=== PATIENT | male | born 1960 | race Caucasian/White ===

== ENCOUNTER 2017-12-19 14:46 | Emergency (ER) | payer MEDICARE, OTHER, MEDICAID ==
[2017-12-19 14:54] LABS: ADD MAN DIFF? NO
[2017-12-19 14:59] LABS: ABNORMAL IP MESSAGE 1; BASOPHIL # 0.1 10^3/ul (0.0-0.1); BASOPHILS % 0.7 % (0.0-2.0); EOSINOPHILS # 0.3 10^3/ul (0.0-0.5); EOSINOPHILS % 2.2 % (0.0-7.0); HEMATOCRIT 40.3 % (42.0-52.0); HEMOGLOBIN 13.2 g/dl (14.0-18.0); IMMATURE GRANS #M 0.03 10^3/ul; IMMATURE GRANS % (M) 0.2 %; LYMPHOCYTES # 3.4 10^3/ul (0.8-2.9); LYMPHOCYTES % 25.5 % (15.0-51.0); MEAN CORPUSCULAR HGB CONC 32.8 g/dl (32.0-37.0); MEAN CORPUSCULAR VOLUME 85.6 fl (82.0-101.0); MEAN PLATELET VOLUME 11.4 fl (7.4-10.4); MONOCYTE # 1.7 10^3/ul (0.3-0.9); MONOCYTES % 12.5 % (0.0-11.0); NEUTROPHIL # 7.9 10^3/ul (1.6-7.5); NEUTROPHILS % 58.9 % (39.0-77.0); PLATELET COUNT 269 10^3/UL (140-415); POSITIVE DIFF @See below; RED BLOOD COUNT 4.71 10^6/ul (4.70-6.10); RED CELL DISTRIBUTION WIDTH 14.2 % (11.5-14.5)
[2017-12-19 14:59] LABS: WHITE BLOOD COUNT 13.4 10^3/ul (4.8-10.8)
[2017-12-19] MEDS: SOD CHLORIDE 0.9% 1,000 ML IV ×2 (15:15→16:04)
[2017-12-19 15:18] LABS: ANION GAP 16 (8-16); BLOOD UREA NITROGEN 17 mg/dl (7-20); CALCIUM 9.1 mg/dl (8.4-10.2); CARBON DIOXIDE 22 mmol/L (21-31); CHLORIDE 100 mmol/L (97-110); CHOL/HDL RATIO 3.1 RATIO; CHOLESTEROL 97 mg/dl (100-200); CREATININE 1.43 mg/dl (0.61-1.24); HDL CHOLESTEROL 31 mg/dl (28-71); LDL CHOLESTEROL,CALCULATED 23 mg/dl; POTASSIUM 4.3 mmol/L (3.5-5.1); SODIUM 134 mmol/L (135-144); TRIGLYCERIDES 215 mg/dl (0-149)
[2017-12-19 15:24] LABS: ETHANOL < 10.0 mg/dl
[2017-12-19] MEDS: MECLIZINE 12.5 MG TAB PO (15:24)
[2017-12-19 15:25] LABS: GLUCOSE 498 mg/dl (70-220)
[2017-12-19 15:30] LABS: TROPONIN-I < 0.010 ng/ml (0.000-0.120)
[2017-12-19] MEDS: INSULIN LISPRO 100 UNIT/ML VIAL SC (16:07)
[2017-12-19 16:21] LABS: HEMOGLOBIN A1C > 14.0 % (0-5.9)
[2017-12-19 17:43] LABS: INR 0.86; PROTIME 11.8 Sec (11.9-14.9); PT RATIO 0.9
[2017-12-19 17:44] LABS: PARTIAL THROMBOPLASTIN TIME 27.3 Sec (25.0-35.0)
== END 2017-12-19 17:20 | disposition home or self-care (01) ==
LOC: E/R 14:46
DX: E11.65 Type 2 diabetes mellitus with hyperglycemia (principal); I10 Essential (primary) hypertension; Z79.4 Long term (current) use of insulin
CPT/HCPCS: 36415; 70450; 71045; 80048; 80061; 80307; 82962; 83036; 84484; 85025; 85610; 85730; 93005; 96372; 99285-25